=== PATIENT | female | born 1985 | race Caucasian/White ===

== ENCOUNTER 2017-07-06 09:15 | Inpatient (IN) ==
[2017-07-06] MEDS ORDERED: ZOFRAN IV PRN (22:04)
[2017-07-06] MEDS ORDERED: AMBIEN PO PRN (22:04)
[2017-07-06] MEDS ORDERED: TYLENOL PO PRN (22:04)
[2017-07-06] MEDS ORDERED: STADOL IV PRN ×3 (22:04)
[2017-07-06] MEDS ORDERED: PEPCID IV PRN (22:04)
[2017-07-06] MEDS ORDERED: BRETHINE SUBQ PRN (22:04)
[2017-07-06] MEDS ORDERED: KEFZOL 1 GM/D5W 1 GM/50 ML IVPB IV PRN (22:04)
[2017-07-06] MEDS ORDERED: PITOCIN 30 UNITS/LR 30 UNITS/500 ML IV.SOLN IV SCH (22:04)
[2017-07-06] MEDS ORDERED: AMPICILLIN 2 GM/NS 2 GM/100 ML IVPB IV ONE (22:30)
[2017-07-06] MEDS: LR 1,000 ML IV SCH (22:50)
[2017-07-06 23:13] LABS: URINE SOURCE VOIDED
[2017-07-06 23:18] LABS: BILIRUBIN URINE NEGATIVE (NEGATIVE); BLOOD URINE NEGATIVE (NEGATIVE); CLARITY CLEAR (CLEAR); COLOR AMBER; GLUCOSE URINE NEGATIVE (NEGATIVE); LEUKOCYTES URINE TRACE (NEGATIVE); NITRITE URINE NEGATIVE (NEGATIVE); PROTEIN URINE 1+(30 mg/dL) mg/dL (NEGATIVE); SP GRAVITY URINE 1.025; UROBILINOGEN URINE NORMAL
[2017-07-06 23:21] LABS: BASO% 0.1 % (0.0-0.8); EOS# 0.09 X1000 (0.0-0.7); EOS% 0.7 % (0.0-10.0); HEMATOCRIT 36.7 % (37.0-47.0); HEMOGLOBIN 12.1 g/dL (12.0-16.0); IMM GRAN# 0.08 X1000 (0.0-0.04); IMM GRAN% 0.6 % (0.0-0.5); LYMPH% 14.1 % (20.5-51.1); MANUAL DIFF NEEDED? YES; MCH 24.9 PG (27-31); MCV 75.5 FL (81-99); MONO# 0.74 X1000 (0.11-0.59); MONO% 5.8 % (1.7-9.3); MPV 11.9 FL (7.4-10.4); NEUT% 78.7 % (42.2-75.2); PLT 153 X1000 (130-400); RBC 4.86 XMIL (4.2-5.4); UR AMPHETAMINES QUAL NONE DETECTED (NONE DETECT); UR BARBITUATES QUAL NONE DETECTED (NONE DETECT); UR BENZODIAZEPIN QUAL NONE DETECTED (NONE DETECT); UR CANNABINOIDS QUAL NONE DETECTED (NONE DETECT); UR COCAINE QUAL NONE DETECTED (NONE DETECT); UR MDMA QUAL NONE DETECTED (NONE DETECT); UR METHADONE QUAL NONE DETECTED (NONE DETECT); UR METHAMPHETAMINE QUAL PRESUMPTIVE POSITIVE (NONE DETECT); UR OPIATES QUAL NONE DETECTED (NONE DETECT); UR OXYCODONE QUAL NONE DETECTED (NONE DETECT); UR PCP QUAL NONE DETECTED (NONE DETECT); UR TCA QUAL NONE DETECTED (NONE DETECT)
[2017-07-06 23:44] LABS: BANDS 8 % (0-1); LYMPHS 14 % (21-51); MONO 5 % (1-9)
[2017-07-06 23:46] LABS: LARGE PLATELETS 1+
[2017-07-07 00:14] LABS: RPR NON-REACTIVE (NONREACTIVE)
[2017-07-07] MEDS ORDERED: CYTOTEC PO ONE (02:00)
[2017-07-07] MEDS: AMPICILLIN 1 GM/NS 1 GM/50 ML IVPB IV SCH ×2 (03:00→07:42)
[2017-07-07] MEDS: LR 1,000 ML IV SCH (05:18)
[2017-07-07] MEDS ORDERED: D5 1/2 NS 1,000 ML IV SCH (07:27)
[2017-07-07] MEDS ORDERED: FENTANYL-BUPIV-NS 2 MCG-0.1% 200 ML EPIDURAL PRN (08:17)
[2017-07-07] MEDS ORDERED: MINERAL OIL PO PRN (09:42)
[2017-07-07] MEDS ORDERED: HYDROXYZINE PO PRN (09:42)
[2017-07-07] MEDS ORDERED: CYTOTEC PO PRN (09:42)
[2017-07-07] MEDS ORDERED: AMBIEN PO PRN (09:42)
[2017-07-07] MEDS ORDERED: XYLOCAINE-MPF 1% INJ PRN (09:42)
[2017-07-07] MEDS ORDERED: M-M-R II VACCINE SUBQ ONE (09:42)
[2017-07-07] MEDS ORDERED: BENADRYL PO PRN (09:42)
[2017-07-07] MEDS ORDERED: PITOCIN 30 UNITS/LR 30 UNITS/500 ML IV.SOLN IV ONE (09:42)
[2017-07-07] MEDS ORDERED: PITOCIN IM PRN (09:42)
[2017-07-07] MEDS ORDERED: BENADRYL IV PRN (09:42)
[2017-07-07] MEDS ORDERED: PITOCIN 20 UNITS/LR 20 UNITS/1,000 ML IV.SOLN IV SCH (09:42)
[2017-07-07] MEDS ORDERED: PERI MEDS (DERMOPLAST/NUPERCAINAL/TUCKS) MISC PRN (09:42)
[2017-07-07] MEDS ORDERED: HYDROXYZINE IM PRN (09:42)
[2017-07-07] MEDS ORDERED: BOOSTRIX VACCINE IM ONE (09:42)
[2017-07-07] MEDS: NORCO-5 PO PRN ×2 (15:21→19:58)
[2017-07-07] MEDS: MOTRIN PO PRN ×2 (15:21→23:14)
[2017-07-07] MEDS: PERICOLACE PO SCH (20:09)
[2017-07-07] MEDS: NORCO-10 PO PRN (23:14)
[2017-07-08] MEDS: NORCO-10 PO PRN ×5 (04:15→21:40)
[2017-07-08 06:13] LABS: HEMATOCRIT 34.1 % (37.0-47.0); HEMOGLOBIN 10.7 g/dL (12.0-16.0); MCH 24.4 PG (27-31); MCHC 31.4 g/dL (33-37); MCV 77.7 FL (81-99); MPV 12.1 FL (7.4-10.4); RBC 4.39 XMIL (4.2-5.4)
[2017-07-08] MEDS: PRECARE PO SCH (08:28)
[2017-07-08] MEDS: HEMOCYTE PLUS CAPSULE PO SCH (08:28)
[2017-07-08] MEDS: ZANTAC PO SCH ×2 (08:29→21:29)
[2017-07-08] MEDS: MOTRIN PO PRN ×2 (08:29→16:50)
[2017-07-08] MEDS: PERICOLACE PO SCH (21:30)
[2017-07-09] MEDS: MOTRIN PO PRN ×2 (01:11→08:49)
[2017-07-09] MEDS: NORCO-10 PO PRN ×2 (01:11→05:46)
[2017-07-09 08:40] VITALS: BP 135/79
[2017-07-09] MEDS: HEMOCYTE PLUS CAPSULE PO SCH (08:41)
[2017-07-09] MEDS: PRECARE PO SCH (08:42)
[2017-07-09] MEDS: ZANTAC PO SCH (08:42)
[2017-07-09] MEDS: NORCO-5 PO PRN (08:49)
== END 2017-07-09 12:20 | disposition home or self-care (01) ==
LOC: P.LD 22:00 → P.WC 07-07 14:58
PROVIDERS: ADMIT Obstetrics & Gynecology; ATTEND Obstetrics & Gynecology